=== PATIENT | male | born 2000 | race Hispanic/Latino ===

== ENCOUNTER 2024-06-01 14:11 | Emergency (ER) | payer SELFPAY ==
[2024-06-01 14:12] VITALS: BP 134/88; PULSE 105; RESP 16; TEMP 37.2; O2SAT 99; BMI 37.6
--- NOTE | 2024-06-01 15:11 | EX.ED.GUMALE ---
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 He states he has been having a little bit of burning dysuria, urgency to urinate, no hematuria, and occasionally small amount of discharge when he is not urinating. He denies any fevers or chills. Denies any abdominal pain or low back pain with any of this. States he saw somebody who gave him some cream and powder to put on the skin of his testicles a week ago and it has not been helping. PFS PFS Medical History no medical history no medical history Home Medications ?Medication ?Instructions ?Recorded ?Last Taken ?Type doxycycline monohydrate 100 mg 100 mg PO BID #14 CAPSULES 06/01/24 Unknown Rx capsule Allergy/AdvReac Type Severity Reaction Status Date / Time Unable to Assess Allergy Verified 06/01/24 14:13 Social History Smoking Status: Never smoker ROS ROS ED Constitutional Constitutional ED: Denies chills or fever(s) Gastrointestinal Gastrointestinal: Denies abdominal pain, diarrhea, nausea or vomiting Genitourinary Genitourinary ED: Reports as per HPI, dysuria, scrotal pain and urinary urgency; Denies hematuria Musculoskeletal Musculoskeletal: Denies back pain Integumentary Reports other Details: Spots questionable rash, see HPI EXAM Physical Exam Const Vital Signs: 06/01/24 14:12 Temperature 99 F Temperature Source Temporal Pulse Rate 105 H Respiratory Rate 16 Blood Pressure 134/88 H Blood Pressure Mean 103 Pulse Ox 99 Oxygen Delivery Method Room Air Positive well nourished and well developed Constitutional Narrative: Well-appearing in no distress General Appearance ED: well developed and NAD HEENT Reports moist mucous membranes Resp normal respiratory effort GI non-tender and non-distended Auscultation: normoactive bowel sounds Palpation: soft no CVA tenderness Narrative: Testicles nontender bilaterally. No edema or gross enlargement/asymmetry, no palpable masses. Epididymides nontender. The skin in the testicles and the penis and the pubic area all appears normal. He shows me 2 black spots, 1 on either side of the base of his penile shaft, both appear to be nevi. Nonraised, nontender, no other rash or lesions noted. No palpable or tender inguinal lymphadenopathy bilaterally. No active urethral discharge. Extremity normal to inspection Neuro oriented x3, CN's II-XII intact bilaterally, moves all extremities, no focal motor deficits and no sensory deficits noted Motor Exam: strength 5/5 throughout Psych mental status grossly normal Skin Lesions: no lesions Rashes: no rashes MDM MDM MDM Narrative Medical decision making narrative: Given his urinary urgency I did a urinalysis to evaluate for possible cystitis that is negative. Clinically he does not have anything that looks like herpes or any other rash that I can see. The 2 spots that he notes look like nevi and are benign and do not indicate infection. They are not chancres. Given this I am going to send urine for GC and chlamydia and test him empirically for both, given the higher likelihood that he is infected with 1 of those of this is an STI which I think is reasonable to assume until proven otherwise; the GC and committee will not likely return while the patient is still here so he will be discharged and given follow-up instructions. Lab Data Attestation: I reviewed the patient's lab results. Labs: Laboratory Results - last 24 hr 06/01/24 15:20 Urine Color Straw Urine Clarity Sl Cldy Urine pH 8.0 Ur Specific [place] 1.015 Urine Protein Negative Urine Glucose (UA) Normal Urine Ketones Negative Urine Occult Blood Negative Urine Nitrite Negative Urine Bilirubin Negative Urine Urobilinogen Normal Ur Leukocyte Esterase Negative Urine RBC 0 SEEN Urine WBC 0 SEEN Ur Squamous Epith Cells 0 SEEN Amorphous Sediment 1+ Urine Bacteria 0 SEEN Urine Mucus 0 SEEN Discharge Plan Triage Chief Complaint: Male Pain/Injury ED Provider: Zan Walker Dx/Rx/DC Orders Clinical Impression: Urethritis Instructions: ED STI Male Treated Prescriptions: New doxycycline monohydrate 100 mg capsule 100 mg PO BID Qty: 14 0RF Primary Care Provider: Care Physician,No Primary Referrals: Care Physician,No Primary [Primary Care Provider] - [facility] - As soon as possible Print Language: Singaporean Disposition Disposition: Home, Self Care
[2024-06-01 15:32] LABS: Bacteria 0 SEEN /hpf (None Seen); Mucous, Urine 0 SEEN /hpf (<or=2+); Squamous Epithelial Cells - UA 0 SEEN /hpf (0-5); White Blood Cells 0 SEEN /hpf (0-5)
[2024-06-01 15:42] LABS: Glucose, Dipstick Normal (Normal); Ketone-Dipstick Negative (Negative); Leukocyte Esterase-Dipstick Negative /ul (Negative); Nitrite-Dipstick Negative (Negative); Occult Blood-Urine Negative /ul (Negative); Protein-Dipstick Negative (Negative); Specific Gravity, Urine 1.015 (1.002-1.030); Urine Bilirubin Dipstick Negative (Negative); Urine Urobilinogen Normal (Normal)
[2024-06-01 15:55] LABS: Color, Urine Straw (Yellow); Urine Clarity Sl Cldy (Clear)
[2024-06-01 15:57] LABS: Red Blood Cells-Urine 0 SEEN /hpf (0-5)
[2024-06-01 15:58] LABS: Amorphous Sediment 1+
[2024-06-01 16:17] VITALS: BP 117/74; PULSE 91; RESP 16; TEMP 37.2; O2SAT 97
[2024-06-01] MEDS: Ceftriaxone 500 MG Vial IM (16:30)
== END 2024-06-01 17:05 | disposition home or self-care (01) ==
PROVIDERS: Emergency Provider Emergency Medicine; Visit Provider Emergency Medicine
DX: N34.2 Other urethritis (principal)
CPT/HCPCS: 81001; 87491; 87591; 96372; 99282

== ENCOUNTER 2024-06-09 17:53 | Emergency (ER) | payer SELFPAY ==
[2024-06-09 17:58] VITALS: BP 138/86; PULSE 111; RESP 14; TEMP 36.6; O2SAT 99; BMI 30.4
--- NOTE | 2024-06-09 18:44 | US_ITS ---
EXAM: Testicular ultrasound with Doppler CLINICAL HISTORY: Pain COMPARISON: None available TECHNIQUE: Testicular ultrasound with grayscale and color spectral Doppler imaging FINDINGS: The testicles appear symmetric and isoechoic. The right testicle measures 4.2 x 2.8 x 1.9 cm. The left testicle measures 4.3 x 2.7 x 1.9 cm. Bilateral arterial and venous flow is identified within the right and left testicle. The right epididymis measures 0.9 x 1 x 0.5 cm. The left epididymis measures 0.9 x 1 x 0.8 cm. 2 mm left epididymal cysts noted, incidental. Trace bilateral hydroceles. No varicocele or hernia identified. US/Testicular with Arterial Flow IMPRESSION: Study appears within limits as above. Reading Location: [id number]
[2024-06-09] MEDS: 0.9% Normal Saline (1000mL) 1,000 ML 999 ML IV (19:02)
--- NOTE | 2024-06-09 19:07 | CT_ITS ---
EXAM: Abdomen/pelvis with IV contrast only CLINICAL HISTORY: Left lower quadrant pain, testicular pain COMPARISON: None available TECHNIQUE: CT of the abdomen and pelvis with contrast and coronal and sagittal reformatted images. 88 cc [id number] FINDINGS: The lung bases appear clear. The liver, gallbladder, adrenal glands, kidneys, pancreas and spleen appear within limits. Symmetric nephrograms without hydronephrosis or perinephric stranding. No ureteral or bladder stone identified. The bladder appears within limits. No bowel dilation or free air. Normal caliber appendix without secondary signs. No diverticulosis. 2 focal circumscribed areas of fat adjacent to the sigmoid colon for example axial 97 and 98 and coronal 52 and 58 measuring around 1-1.2 cm may represent epiploic appendagitis. No free fluid. No hernia. Abdominal aorta appears within limits. No adenopathy. The visualized osseous structures appear within limits. CT/Abdomen/Pelvis W IV Cont ONLY IMPRESSION: 2 focal circumscribed areas of fat adjacent to the sigmoid colon for example ax ial 97 and 98 and coronal 52 and 58 measuring around 1-1.2 cm may represent epiploic appendagitis. No free fluid. Reading Location: [id number]
[2024-06-09 19:08] LABS: Bacteria 0 SEEN /hpf (None Seen); Mucous, Urine 0 SEEN /hpf (<or=2+)
[2024-06-09 19:19] LABS: Color, Urine Yellow (Yellow); Glucose, Dipstick Normal (Normal); Ketone-Dipstick Negative (Negative); Leukocyte Esterase-Dipstick Negative /ul (Negative); Nitrite-Dipstick Negative (Negative); Occult Blood-Urine Negative /ul (Negative); Protein-Dipstick 15 mg/dl (Negative); Urine Bilirubin Dipstick Negative (Negative); Urine Clarity Clear (Clear); Urine Urobilinogen Normal (Normal)
[2024-06-09 19:19] LABS: Lipase 36 U/L (13-75)
[2024-06-09 19:21] LABS: ALB/GLOB Ratio 1.5 RATIO (0.9-2.4); AST(SGOT) 31 U/L (<=37); Alanine Aminotransfer ALT/SGPT 29 U/L (<=46); Albumin, Serum 4.8 g/dL (3.5-5.0); Alkaline Phosphatase 74 U/L (40-129); Anion Gap 11 (5-15); BUN 13 mg/dL (4-19); BUN/Creat Ratio 14.1 RATIO (10-20); Calcium,Total 9.5 mg/dL (7.6-11.0); Carbon Dioxide 25.3 mmol/L (21.0-32.0); Chloride 104 mmol/L (98-108); Creatinine, Serum 0.92 mg/dL (0.70-1.20); EST Glomerular Filtration Rate 118 (>60); Estimated Creatinine Clearance 99.65 ml/min (50-250); Globulin 3.3 g/dL (2.2-4.2); Glucose 117 mg/dL (70-99); Potassium 4.1 mmol/L (3.3-5.1); Protein, Total 8.1 g/dL (5.9-8.4); Sodium Level 140 mmol/L (133-145); Total Bilirubin 0.41 mg/dL (0.00-1.30)
[2024-06-09 19:27] LABS: Absolute Lymphocyte Count 2.01 X10^3/uL (0.83-4.51); Absolute Neutrophil Count 6.9 X10^3/uL (2.0-7.7); Basophil# 0.07 X10^3/uL; Basophil% 0.7 % (0-1); Eosinophil# 0.22 X10^3/uL; Eosinophils% 2.2 % (0-5); Hematocrit 45.7 % (40-54); Hemoglobin 16.3 g/dL (13.0-16.5); Lymphocyte # 2.01 X10^3/ul (0.83-4.51); Lymphocyte % 20.3 % (19-41); Mean Corp Hgb Conc 35.7 g/dL (32-36); Mean Platelet Vol. 10.6 fl (6.2-12.0); Monocyte# 0.66 X10^3/uL; Monocyte% 6.7 % (0-10); NRBC Flagged by Analyzer 0 % (0-5); Neutrophil # 6.93 X10^3/uL (2.7-7.7); Neutrophil % 69.8 % (47-70); POSITIVE MORPHOLOGY YES; Platelet Count 264 K/mm3 (150-450); RBC Distribution Width CV 13.1 % (11.6-14.6); RBC Distribution Width SD 41.3 fl (35.1-43.9); Red Blood Count 5.25 M/mm3 (4.6-6.2); White Blood Count 9.9 K/mm3 (4.4-11.0)
[2024-06-09 19:53] LABS: Red Blood Cells-Urine 0 SEEN /hpf (0-5); Squamous Epithelial Cells - UA 0-5 SEEN /hpf (0-5); White Blood Cells 0-5 SEEN /hpf (0-5)
--- NOTE | 2024-06-09 19:58 | EDS_ITS ---
HPI History of Present Illness Chief Complaint: Other, Pain/Inj Narrative Narrative: Patient is a 24-year-old male with no known significant past medical history who presents to the emergency department the chief complaint of concern of return to infection in his testicle region. Patient states that he was here previously was treated for a STI after having intercourse with a unknown individual he states that he took the full course of doxycycline. He states that he is concerned when he touches testicles with his hands his back of his hands have skin changes as well. He thinks that these 2 are related and wanted to be further evaluated thinks that he needs more antibiotics. 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 PFSH PFSH Medical History no medical history Home Medications ?Medication ?Instructions ?Recorded ?Last Taken ?Type doxycycline monohydrate 100 mg 100 mg PO BID #14 CAPSU LES 06/01/24 Unknown Rx capsule prednisone 50 mg tablet 50 mg PO DAILY 4 days #4 tab s 06/09/24 Unknown Rx Allergy/AdvReac Type Severity Reaction Status Date / Time No Known Allergies Allergy Verified 06/09/24 18:41 Social History Smoking Status: Never smoker ROS ROS ED ROS Narrative Constitutional: Denies fevers, chills, headaches Abdomen: Complains of some abdominal comfort denies nausea vomit diarrhea : Complains of some painful urination neck denies any increased frequency of urination or blood in his urine denies any urethral discharge Neurological: Patient follow commands that he was at the hospital Skin: Patient has dry excoriated skin on the back of his hands bilaterally, no other rashes or lesions noted no petechia no purpura noted EXAM Physical Exam Narrative Exam Narrative: General: Patient lying in bed rest comfortably did not appear to be in acute distress Head: Atraumatic, normocephalic Eyes: PERRL bilateral, EOMI bilateral, no conjunctival injection noted Neck: Soft, supple, trachea Cardiovascular:Regular rate and rhythm no murmurs gallops rubs or noted Respiratory: Clear to auscultation bilaterally no rales rhonchi or wheezes noted Abdomen: Soft, nondistended, tenderness palpation left lower quadrant no rebound or guarding on exam Genitourinary: Patient has no tenderness palpation over his testicles bilaterally no tenderness over the bilateral epididymides, no urethral discharge noted, uncircumcised, no chancre or other sores on the penis noted Extremities: +5/5 strength in the bilateral lower extremities Neurological: Patient follow commands and that he was at [facility] years 2024 Skin: Warm, dry, patient has excoriated dry skin on the back of his hands bilaterally as noted above Const Vital Signs: 06/09/24 17:58 06/09/24 18:42 06/09/24 22:00 Temperature 97.9 F Temperature Source Temporal Pulse Rate 111 H 67 Respiratory Rate 14 18 Respiratory Effort Normal Non-Labored Respiratory Pattern Normal Blood Pressure 138/86 H 128/66 H Blood Pressure Mean 103 86 Pulse Ox 99 98 Oxygen Delivery Method Room Air Room Air MDM MDM MDM Narrative Medical decision making narrative: Patient is a 24-year-old male who presents to the emergency department with concern for returning of an STI and skin changes to the back of his hand. On the differential diagnose includes but not limited to diverticulitis, appendicitis, testicular torsion although do have low suspicion for this based on physical exam with bilateral cremasteric reflex and normal vertical lie of the testicles without any testicular pain, STI, UTI. Once workup is obtained and reviewed he will be reevaluated Patient CBC was reviewed showed no evidence leukocytosis white blood count normal at 9.9, hemoglobin 16.3, plate count normal at 264. Patient sodium normal 140, potassium normal 4.1, creatinine normal at 0.92. Patient AST and ALT were 3129 respectively, lipase normal at 36. Patient's urinalysis was reviewed and showed no evidence of infection. Patient's testicular ultrasound was reviewed and showed no acute findings. Patient's CT abdomen pelvis with IV contrast showed 2 focal circumscribed areas with fat adjacent to the sigmoid colon measuring around 1 to 1.2 cm consistent with epiploic appendagitis no free fluid noted. I discussed the results with the patient and on reevaluation patient is feeling better he would like to go home at this point time. He is vies to use hydrating cream/lotion for his hands as they appear to be very dry. He will be placed on a short course of steroids as well he was given his first dose here prescription will be sent to the pharmacy. He is advised follow-up with primary care physician and return with worsening symptoms or concerns. He is agreeable this plan all question concerns answered he is discharged home in stable condition. Lab Data Labs: Laboratory Results - last 24 hr 06/09/24 06/09/24 18:52 19:04 WBC 9.9 RBC 5.25 Hgb 16.3 Hct 45.7 MCV 87.0 MCH 31.0 MCHC 35.7 RDW Std Deviation 41.3 RDW Coeff of Debra 13.1 Plt Count 264 MPV 10.6 Immature Gran % (Auto) 0.300 Neut % (Auto) 69.8 Lymph % (Auto) 20.3 [place] % (Auto) 6.7 Eos % (Auto) 2.2 Baso % (Auto) 0.7 Absolute Neuts (auto) 6.9 Absolute Lymphs (auto) 2.01 Nucleated RBC % 0 Atypical Lymphocytes 1+ Reactive Lymphocytes 1+ Plt Morphology Comment LARGE Sodium 140 Potassium 4.1 Chloride 104 Carbon Dioxide 25.3 Anion Gap 11 BUN 13 Creatinine 0.92 Estim Creat Clear Calc 99.65 Est GFR (MDRD) Non-Af 118 BUN/Creatinine Ratio 14.1 Glucose 117 H Calcium 9.5 Total Bilirubin 0.41 AST 31 ALT 29 Alkaline Phosphatase 74 Total Protein 8.1 Albumin 4.8 Globulin 3.3 Albumin/Globulin Ratio 1.5 Lipase 36 Urine Color Yellow Urine Clarity Clear Urine pH 7.0 Ur Specific [place] 1.010 Urine Protein 15 H Urine Glucose (UA) Normal Urine Ketones Negative Urine Occult Blood Negative Urine Nitrite Negative Urine Bilirubin Negative Urine Urobilinogen Normal Ur Leukocyte Esterase Negative Urine RBC 0 SEEN Urine WBC 0-5 SEEN Ur Squamous Epith Cells 0-5 SEEN Urine Bacteria 0 SEEN Urine Mucus 0 SEEN Radiography Diagnostic Testing: Clinical Impression(s) from Imaging Studies Testicular Ultrasound 06/09/24 18:44 IMPRESSION: Study appears within limits as above. Reading Location: [facility] Abdomen/Pelvis CT 06/09/24 19:07 IMPRESSION: 2 focal circumscribed areas of fat adjacent to the sigmoid colon for example axial 97 and 98 and coronal 52 and 58 measuring around 1-1.2 cm may represent epiploic appendagitis. No free fluid. Reading Location: [facility] Discharge Plan Triage Chief Complaint: Other, Pain/Inj ED Provider: Jason Gonzalez Dx/Rx/DC Orders Clinical Impression: Abdominal pain, Epiploic appendagitis, Dry skin Prescriptions: New prednisone 50 mg tablet 50 mg PO DAILY 4 Days Qty: 4 0RF No Action doxycycline monohydrate 100 mg capsule 100 mg PO BID Qty: 14 0RF Primary Care Provider: Care Physician,No Primary Referrals: Care Physician,No Primary [Primary Care Provider] - Rabia Whipple, [employer] [facility] - Activity Restrictions/Additional Instructions: Your ultrasound of your testicles was normal. Your CT of your abdomen showed inflammation of fat around your colon you need to take either ibuprofen, Advil, Aleve to help with his pain. Return with worsening symptoms or concerns. Use lotion for moisturizer of your skin. Take the steroids that were sent to your pharmacy as prescribed. Print Language: Cambodian Disposition Disposition: Home, Self Care
[2024-06-09 20:00] LABS: Differential Indicated SCAN CRITERIA MET
[2024-06-09 20:01] LABS: Atypical Lymphocyte 1+ %; Reactive Lymphocyte 1+
[2024-06-09 20:02] LABS: Platelet Morphology LARGE
[2024-06-09] MEDS: Ketorolac 15 MG/ML Vial IV (20:33)
[2024-06-09 22:00] VITALS: BP 128/66; PULSE 67; RESP 18; O2SAT 98
[2024-06-09] MEDS: predniSONE 20 MG Tablet 60 MG PO (23:07)
[2024-06-09 23:12] VITALS: BP 123/57; PULSE 88; RESP 18; TEMP 36.5; O2SAT 99
== END 2024-06-09 23:12 | disposition home or self-care (01) ==
PROVIDERS: Emergency Provider Emergency Medicine; Visit Provider Emergency Medicine
DX: R10.9 Unspecified abdominal pain (principal); K63.89 Other specified diseases of intestine; Q43.8 Other specified congenital malformations of intestine
CPT/HCPCS: 74177; 76870; 80053; 81001; 83690; 85025; 93976; 96361; 96374; 99282; Q9967; A4216